=== PATIENT | female | born 1955 | race African-American/Black ===

== ENCOUNTER 2017-07-18 09:18 | Emergency (ER) | payer SELFPAY ==
[2017-07-18 09:45] LABS: ABSOLUTE BASOPHILS # (AUTO) 0.1 10^3/uL (0.0-0.2); ABSOLUTE EOSINOPHILS # (AUTO) 0.1 10^3/uL (0.0-0.6); ABSOLUTE LYMPHOCYTES (AUTO) 1.7 10^3/uL (0.5-4.7); ABSOLUTE MONOCYTES (AUTO) 0.6 10^3/uL (0.1-1.4); ABSOLUTE NEUT (AUTO) 4.8 10^3/uL (1.7-8.2); BASOPHILS % (AUTO) 0.9 % (0-2); EOSINOPHILS % (AUTO) 1.2 % (0-6); HEMATOCRIT 41.7 % (36.0-47.0); HEMOGLOBIN 14.5 g/dL (12.0-15.5); HGB HCT DIFFERENCE 1.8; LYMPHOCYTES % (AUTO) 23.6 % (13-45); MEAN CORPUSCULAR HGB CONC 34.7 g/dL (32.0-36.0); MEAN CORPUSCULAR VOLUME 89 fl (80-97); MONOCYTES % (AUTO) 8.7 % (3-13); RED BLOOD COUNT 4.67 10^6/uL (3.72-5.28); RED CELL DISTRIBUTION WIDTH 13.9 % (11.5-14.0); SEGMENTED NEUTROPHILS % (AUTO) 65.6 % (42-78); WHITE BLOOD COUNT 7.4 10^3/uL (4.0-10.5)
[2017-07-18 10:22] LABS: ALANINE AMINOTRANSFERASE 22 U/L (9-52); ALBUMIN 3.7 g/dL (3.5-5.0); ALKALINE PHOSPHATASE 75 U/L (38-126); ANION GAP 7 (5-19); ASPARTATE AMINO TRANSFERASE 17 U/L (14-36); BILIRUBIN,DIRECT 0.4 mg/dL (0.0-0.4); BLOOD UREA NITROGEN 15 mg/dL (7-20); CALCIUM 9.6 mg/dL (8.4-10.2); CARBON DIOXIDE 27 mmol/L (22-30); CHLORIDE 109 mmol/L (98-107); CREATINE KINASE 104 U/L (30-135); CREATININE RESULT 0.65 mg/dL (0.52-1.25); GLUCOSE 69 mg/dL (75-110); POTASSIUM 4.3 mmol/L (3.6-5.0); SODIUM 143.3 mmol/L (137-145)
[2017-07-18] MEDS ORDERED: ONDANSETRON HCL INJ/PF 4 MG/2 ML SDV IV ONE (10:23)
[2017-07-18] MEDS ORDERED: MECLIZINE HCL 25 MG TABLET PO ONE (10:23)
[2017-07-18] MEDS ORDERED: NORMAL SALINE 1000 ML 1,000 ML IV ONE (10:23)
--- NOTE | 2017-07-18 10:25 | ER Document Report ---
ED General <MIKRUBEN - Last Filed: 07/18/17 15:33> - General Information source: Patient TRAVEL OUTSIDE OF THE U.[place] IN LAST 30 DAYS: No - HPI Onset: Just prior to arrival Associated symptoms: Other - see above <FOZIA PATEL - Last Filed: 07/19/17 10:07> - General Chief Complaint: Dizziness Stated Complaint: WEAKNESS/DIZZY Time Seen by Provider: 07/18/17 09:44 Notes: Patient is a 62 year old female who presents to the ED with complaints of feeling weak and tired. Patient was walking form home to [facility] (about a 45 min walk, she does this 4 times a week) when she became diaphoretic and dizzy. Patient states her symptoms have no exacerbating factors. Patient denies chest pain or sob. Patient is feeling a little better but is still nauseous and she has vomited. (FOZIA PATEL) Past Medical History - General Information source: Patient - Social History Smoking Status: Never Smoker Chew tobacco use (# tins/day): No Frequency of alcohol use: None Drug Abuse: None Family History: Reviewed & Not Pertinent Patient has suicidal ideation: No Patient has homicidal ideation: No - Past Medical History Cardiac Medical History: Reports: Hx Heart Attack Pulmonary Medical History: Reports: Hx Asthma Endocrine Medical History: Reports: Hx Diabetes Mellitus Type 2 Renal/ Medical History: Denies: Hx Peritoneal Dialysis - Immunizations Hx Diphtheria, Pertussis, Tetanus Vaccination: Yes <FOZIA PATEL - Last Filed: 07/19/17 10:07> Review of Systems - Review of Systems Constitutional: See HPI, Malaise, Weakness EENT: No symptoms reported Cardiovascular: See HPI, Dizziness. denies: Chest pain Respiratory: See HPI. denies: Short of breath Gastrointestinal: See HPI, Nausea, Vomiting Genitourinary: No symptoms reported Female Genitourinary: No symptoms reported Musculoskeletal: No symptoms reported Skin: No symptoms reported Hematologic/Lymphatic: No symptoms reported Neurological/Psychological: See HPI, Weakness <FOZIA PATEL - Last Filed: 07/19/17 10:07> Physical Exam <RUBEN HOUSER - Last Filed: 07/18/17 15:33> - General General appearance: Appears well, Alert In distress: None - HEENT Head: Normocephalic, Atraumatic, Other - dizziness reproduced when moving head around Eyes: Normal, Other - no nystagmus Extraocular movements intact: Yes Pupils: PERRL - Respiratory Respiratory status: No respiratory distress Breath sounds: Normal - Cardiovascular Rhythm: Regular Heart sounds: Normal auscultation Murmur: No - Abdominal Inspection: Normal Distension: No distension Bowel sounds: Normal Tenderness: Nontender - Back Back: Normal - Extremities General upper extremity: Normal inspection, Normal ROM General lower extremity: Normal inspection, Normal ROM. No: Edema - Neurological Neuro grossly intact: Yes - Psychological Associated symptoms: Normal affect, Normal mood - Skin Skin Temperature: Warm Skin Moisture: Dry Skin Color: Normal <FOZIA PATEL - Last Filed: 07/19/17 10:07> - Vital signs Vitals: Temp Resp BP Pulse Ox 98.3 F 16 153/86 H 95 07/18/17 09:24 07/18/17 09:24 07/18/17 09:24 07/18/17 09:24 - Skin Notes: Patient has neurofibroma. (FOZIA PATEL) Course - Laboratory Result Diagrams: 07/18/17 09:30 07/18/17 09:30 - EKG Interpretation by Nj EKG shows normal: Sinus rhythm, Dale, Intervals, QRS Complexes, ST-T Waves Rate: Normal - 78 Rhythm: NSR Dale/QRS: LAHB/LAFB Voltage: Consistant with LVH When compared to previous EKG there are: Previous EKG unavailable <RUBEN HOUSER - Last Filed: 07/18/17 15:33> - Laboratory Result Diagrams: 07/18/17 09:30 07/18/17 09:30 <FOZIA PATEL - Last Filed: 07/19/17 10:07> - Vital Signs Vital signs: Temp Pulse Resp BP Pulse Ox 97.2 F 74 16 174/73 H 98 07/18/17 17:01 07/18/17 17:01 07/18/17 17:01 07/18/17 17:01 07/18/17 17:01 - Laboratory Laboratory results interpreted by mo: 07/18/17 07/18/17 09:30 10:30 Chloride 109 H Glucose 69 L Urine Urobilinogen 4.0 H Urine Ascorbic Acid 40 H Discharge <RUBEN HOUSER - Last Filed: 07/18/17 15:33> <FOZIA PATEL - Last Filed: 07/19/17 10:07> - Discharge Clinical Impression: Light-headed feeling, Hypoglycemia Nausea and vomiting Qualifiers: Vomiting type: unspecified Vomiting Intractability: non-intractable Qualified Code(s): R11.2 - Nausea with vomiting, unspecified Condition: Stable Disposition: HOME, SELF-CARE Additional Instructions: Nausea or Vomiting, Nonspecific: Vomiting (or nausea without vomiting) can be caused by many different problems. Of course, it can mean that something's wrong with the stomach, such as "stomach flu," ulcers, or inflammation. But it can also be a symptom of a problem that has nothing to do with the stomach or intestines. Vomiting is common with severe headaches, earaches, and tonsillitis. We see it with pneumonia or heart attacks. Drugs can cause nausea. Many abdominal problems cause vomiting; for example, gallstones, kidney stones, pancreatitis, and intestinal obstruction (blocked bowels). In most cases, curing the vomiting depends on fixing the problem that caused it. For temporary relief, we may use an anti-nausea medicine. For home use, we can prescribe suppositories, chewable pills, pills that dissolve in the mouth, or liquid anti-nausea drugs. If the vomiting seems to be caused by a problem in the stomach, acid-suppressing drugs may be prescribed as well. It's important to avoid dehydration. Sip clear liquids. Take increasing amounts of fluid over the first 24 hours. Then start small amounts of bland foods (such as dry toast, applesauce, mashed potato). Avoid aspirin, tobacco, and alcohol. Gradually resume your usual diet. If the vomiting worsens, if the problem that's making you vomit worsens, or if there's evidence of bleeding in the stomach (such as black, tarry stool, bloody or black vomit, or lightheadedness), you should return immediately. Call your doctor if you aren't improved in 24 to 36 hours. //////////////////////////////////////////////////////////////////////////////// //////////////////////////////////////////////////////////////////////////////// ////////////////// Your symptoms of feeling lightheaded dizzy, nausea weak sweating and vomiting could be due to many causes. Your EKG heart tracing was normal. Your heart enzymes were normal. Your blood sugar was a little low. You did improve with medicine for nausea and dizziness and eating some. You will be discharged with a prescription for medicine that should help the nausea and dizzy sensation. You should be sure to drink plenty of fluids and not miss meals. Get plenty of rest. Follow-up with [facility] for your medical care. Call them tomorrow to set up a new patient appointment. The address for [facility] is [address] [place] [address]. The phone number is listed correctly below. RETURN TO THE EMERGENCY ROOM IF ANY NEW OR WORSENING SYMPTOMS. Prescriptions: Meclizine HCl [Antivert 25 mg Tablet] 25 mg PO TID PRN #20 tablet PRN Reason: Forms: Return to Work Referrals: [facility] [Provider Group] - Follow up in 3-5 days (CALL TOMORROW TO SCHEDULE A NEW PATIENT APPOINTMENT.) Scribe Attestation: 07/18/17 15:38 I personally performed the services described in the documentation, reviewed and edited the documentation which was dictated to the scribe in my presence, and it accurately records my words and actions. (RUBEN HOUSER) Scribe Documentation - Scribe Written by Danielle:: danielle Connolly, 07/18/2017, 1026 acting as scribe for :: Mik <FOZIA PATEL - Last Filed: 07/19/17 10:07>
[2017-07-18 10:35] LABS: CREATINE KINASE MB 0.83 ng/mL (<4.55)
[2017-07-18 10:36] LABS: TROPONIN I < 0.012 ng/mL
[2017-07-18 10:59] LABS: APPEARANCE,URINE CLEAR; BILIRUBIN,URINE NEGATIVE (NEGATIVE); GLUCOSE, URINE NEGATIVE (NEGATIVE); KETONES,URINE NEGATIVE (NEGATIVE); LEUKOCYTE ESTERASE,URINE NEGATIVE (NEGATIVE); NITRITE,URINE NEGATIVE (NEGATIVE); PROTEIN,URINE NEGATIVE (NEGATIVE); URINE SPECIFIC GRAVITY 1.017
[2017-07-18] MEDS ORDERED: METOCLOPRAMIDE HCL INJ/PF 10 MG/2 ML SDV IV ONE (12:34)
--- NOTE | 2017-07-18 13:54 | EKG REPORT ---
SEVERITY:- ABNORMAL ECG - SINUS RHYTHM LEFT ANTERIOR FASCICULAR BLOCK LVH BY VOLTAGE : Confirmed by: Miah Presley MD 18-Jul-2017 13:53:47
[2017-07-18 17:02] VITALS: BP 174/73
== END 2017-07-18 17:04 | disposition home or self-care (01) ==
LOC: ER 09:18
DX: E11.649 Type 2 diabetes mellitus with hypoglycemia without coma (principal); I44.4 Left anterior fascicular block; R53.1 Weakness; R53.83 Other fatigue; R53.81 Other malaise; R11.2 Nausea with vomiting, unspecified; I25.2 Old myocardial infarction; J45.909 Unspecified asthma, uncomplicated; D36.10 Benign neoplasm of peripheral nerves and autonomic nervous system, unspecified
CPT/HCPCS: 93005; 99284; 96374; 96375; 36415; 82553; 82962; 82550; 85025; 80053; 81001; 84484; 93010; J2765; J2405; J7030

== ENCOUNTER 2017-08-26 15:17 | Emergency (ER) | payer MEDICAID ==
[2017-08-26] MEDS ORDERED: ONDANSETRON HCL INJ/PF 4 MG/2 ML SDV IV ONE (15:49)
[2017-08-26] MEDS ORDERED: MORPHINE SULFATE 10 MG/ML INJ IV ONE (15:49)
--- NOTE | 2017-08-26 15:50 | ER Document Report ---
ED Medical Screen (RME) - General Chief Complaint: Abdominal Pain Stated Complaint: ABDOMINAL PAIN Time Seen by Provider: 08/26/17 15:41 Mode of Arrival: Ambulatory Information source: Patient Notes: 62-year-old female presents with complaints of abdominal pain. Patient denies any fevers or chills denies any nausea vomiting or diarrhea patient notes the pain is in the left flank radiating to the her abdomen down to her buttocks I have greeted and performed a rapid initial assessment of this patient. A comprehensive ED assessment and evaluation of the patient, analysis of test results and completion of the medical decision making process will be conducted by additional ED providers. PHYSICAL EXAMINATION: GENERAL: Well-appearing, well-nourished and in no acute distress. HEAD: Atraumatic, normocephalic. EYES: Pupils equal round extraocular movements intact, conjunctiva are normal. ENT: Nares patent NECK: Normal range of motion LUNGS: No respiratory distress Musculoskeletal: Normal range of motion NEUROLOGICAL: Normal speech, normal gait. PSYCH: Normal mood, normal affect. SKIN: Warm, Dry, normal turgor, no rashes or lesions noted. TRAVEL OUTSIDE OF THE [place] IN LAST 30 DAYS: No - Related Data Allergies/Adverse Reactions: Tetracyclines Allergy (Verified 08/26/17 15:29) Past Medical History - Social History Chew tobacco use (# tins/day): No Frequency of alcohol use: None Drug Abuse: None - Past Medical History Cardiac Medical History: Reports: Hx Heart Attack Pulmonary Medical History: Reports: Hx Asthma Endocrine Medical History: Reports: Hx Diabetes Mellitus Type 2 Renal/ Medical History: Denies: Hx Peritoneal Dialysis Past Surgical History: Reports: Hx Hysterectomy, Hx Kidney (Renal Surgery) - cyst removal - Immunizations Hx Diphtheria, Pertussis, Tetanus Vaccination: Yes Physical Exam - Vital signs Vitals: Temp Pulse Resp BP Pulse Ox 98.9 F 69 20 137/72 H 98 08/26/17 15:22 08/26/17 15:22 08/26/17 15:22 08/26/17 15:22 08/26/17 15:22 Course - Vital Signs Vital signs: Temp Pulse Resp BP Pulse Ox 98.9 F 69 20 137/72 H 98 08/26/17 15:22 08/26/17 15:22 08/26/17 15:22 08/26/17 15:22 08/26/17 15:22
[2017-08-26 16:38] LABS: APPEARANCE,URINE CLEAR; BILIRUBIN,URINE NEGATIVE (NEGATIVE); GLUCOSE, URINE 50 mg/dL (NEGATIVE); KETONES,URINE NEGATIVE (NEGATIVE); LEUKOCYTE ESTERASE,URINE TRACE (NEGATIVE); NITRITE,URINE NEGATIVE (NEGATIVE); PROTEIN,URINE NEGATIVE (NEGATIVE); URINE SPECIFIC GRAVITY 1.019; UROBILINOGEN,URINE NEGATIVE mg/dL (<2.0)
--- NOTE | 2017-08-26 17:12 | ER Document Report ---
ED GI/ - General Chief Complaint: Abdominal Pain Stated Complaint: ABDOMINAL PAIN Time Seen by Provider: 08/26/17 15:41 Mode of Arrival: Ambulatory Information source: Patient Notes: 62 yo htn, neurofibromatosis, benign fallopian mass removed, DM2 (insulin dependent female c/o left waxing and waning 5/5 flank pain that radiates to LLQ for 1 week. Nausea without vomiting. Worse with movement. Similar pain in the past but on right and it was diverticulitis resulted in parital colectomy ( [place]), hyst. No hx kidney stones, urine looks dark. No cough or SOB, no chest pain. PCP: Dr. [facility]. Has had 3-[address]'s in life. Soft bm this am, no blood or mucous. TRAVEL OUTSIDE OF THE [place] IN LAST 30 DAYS: No - Related Data Allergies/Adverse Reactions: Tetracyclines Allergy (Verified 08/26/17 15:29) Past Medical History - General Information source: Patient - Social History Smoking Status: Never Smoker Chew tobacco use (# tins/day): No Frequency of alcohol use: None Drug Abuse: None Lives with: Family Family History: Reviewed & Not Pertinent - Past Medical History Cardiac Medical History: Reports: Hx Heart Attack - "light" this year Pulmonary Medical History: Reports: Hx Asthma Endocrine Medical History: Reports: Hx Diabetes Mellitus Type 2 Renal/ Medical History: Denies: Hx Peritoneal Dialysis Other: neurofibromatosis Past Surgical History: Reports: Hx Bowel Surgery - partial colectomy, Hx Hysterectomy, Hx Kidney (Renal Surgery) - cyst removal - Immunizations Hx Diphtheria, Pertussis, Tetanus Vaccination: Yes Review of Systems - Review of Systems Constitutional: No symptoms reported EENT: No symptoms reported Cardiovascular: No symptoms reported Respiratory: No symptoms reported Gastrointestinal: See HPI Genitourinary: No symptoms reported Female Genitourinary: No symptoms reported Musculoskeletal: No symptoms reported Skin: No symptoms reported Hematologic/Lymphatic: No symptoms reported Neurological/Psychological: No symptoms reported Physical Exam - Vital signs Vitals: Temp Pulse Resp BP Pulse Ox 98.9 F 69 20 137/72 H 98 08/26/17 15:22 08/26/17 15:22 08/26/17 15:22 08/26/17 15:22 08/26/17 15:22 Interpretation: Normal - General General appearance: Appears well, Alert In distress: None - HEENT Head: Normocephalic, Atraumatic Eyes: Normal Conjunctiva: Normal Pupils: PERRL Mucous membranes: Normal Pharynx: Normal Neck: Supple. No: Thyromegally - Respiratory Respiratory status: No respiratory distress Chest status: Nontender Breath sounds: Normal Chest palpation: Normal - Cardiovascular Rhythm: Regular Heart sounds: Normal auscultation Murmur: No - Abdominal Inspection: Normal Distension: No distension Bowel sounds: Normal Tenderness: Tender - LLQ Organomegaly: No organomegaly - Back Back: Normal, Tender - Left lumbosacral back. No: CVA tenderness - Extremities General upper extremity: Normal inspection, Nontender, Normal color, Normal ROM , Normal temperature General lower extremity: Normal inspection, Nontender, Normal color, Normal ROM , Normal temperature, Normal weight bearing. No: Mk's sign - Neurological Neuro grossly intact: Yes Cognition: Normal Orientation: AAOx4 [place] Coma Scale Eye Opening: Spontaneous [place] Coma Scale Verbal: Oriented J[place] Coma Scale Motor: Obeys Commands Jyoti Coma Scale Total: 15 Speech: Normal Motor strength normal: LUE, RUE, LLE, RLE Sensory: Normal Knee - Reflex grade: 2 = Normal - Bilateral Ankle - Reflex grade: 2 = Normal - Lateral - Psychological Associated symptoms: Normal affect, Normal mood - Skin Skin Temperature: Warm Skin Moisture: Dry Skin Color: Normal Skin irregularity: negative: Rash Course - Re-evaluation Re-evalutation: 08/26/17 19:10 labs, ct, are negative except stool load in colon. Told her about miralax, she is most interested in getting a school note. I suspect the back pain is muscular , reflexs 2+, no radiculoapthy or saddle anesthesia. - Vital Signs Vital signs: Temp Pulse Resp BP Pulse Ox 98.9 F 69 20 137/72 H 98 08/26/17 15:22 08/26/17 15:22 08/26/17 15:22 08/26/17 15:22 08/26/17 15:22 - Laboratory Result Diagrams: 08/26/17 16:42 08/26/17 16:42 Laboratory results interpreted by me: 08/26/17 08/26/17 08/26/17 15:50 16:42 16:42 WBC 10.6 H RBC 5.58 H Hgb 17.6 H Hct 49.6 H Glucose 172 H Calcium 10.6 H Total Protein 8.5 H Urine Glucose (UA) 50 H Ur Leukocyte Esterase TRACE H Urine Ascorbic Acid 20 H Discharge - Discharge Clinical Impression: left flank pain, lumbosacral tender, LLQ abdominal pain Condition: Good Disposition: HOME, SELF-CARE Instructions: Abdominal Pain ([facility]), Flank Pain ([facility]), Warm Packs ([facility]) Additional Instructions: take miralax 1 capful daily heat to sore back to er if worse see your doctor for follow up copy of labs and imaging given to you Please complete the patient satisfaction survey if you get one, and return it.. If you do not receive a survey, then you can go to the [facility] website, [email or web address] and place your comments about your very good care. Thank you very much. It was a pleasure being your medical provider today. Forms: Return to School
[2017-08-26 17:13] LABS: ABSOLUTE BASOPHILS # (AUTO) 0.1 10^3/uL (0.0-0.2); ABSOLUTE EOSINOPHILS # (AUTO) 0.2 10^3/uL (0.0-0.6); ABSOLUTE LYMPHOCYTES (AUTO) 2.9 10^3/uL (0.5-4.7); ABSOLUTE MONOCYTES (AUTO) 0.8 10^3/uL (0.1-1.4); ABSOLUTE NEUT (AUTO) 6.5 10^3/uL (1.7-8.2); BASOPHILS % (AUTO) 0.8 % (0-2); EOSINOPHILS % (AUTO) 1.5 % (0-6); HEMATOCRIT 49.6 % (36.0-47.0); HEMOGLOBIN 17.6 g/dL (12.0-15.5); HGB HCT DIFFERENCE 3.2; LYMPHOCYTES % (AUTO) 27.7 % (13-45); MEAN CORPUSCULAR HEMOGLOBIN 31.5 pg (27.0-33.4); MEAN CORPUSCULAR HGB CONC 35.4 g/dL (32.0-36.0); MEAN CORPUSCULAR VOLUME 89 fl (80-97); RED BLOOD COUNT 5.58 10^6/uL (3.72-5.28); RED CELL DISTRIBUTION WIDTH 13.5 % (11.5-14.0); WHITE BLOOD COUNT 10.6 10^3/uL (4.0-10.5)
[2017-08-26 17:33] LABS: ALANINE AMINOTRANSFERASE 30 U/L (9-52); ALBUMIN 4.5 g/dL (3.5-5.0); ALKALINE PHOSPHATASE 95 U/L (38-126); ANION GAP 14 (5-19); ASPARTATE AMINO TRANSFERASE 17 U/L (14-36); BILIRUBIN,DIRECT 0.4 mg/dL (0.0-0.4); BILIRUBIN,TOTAL 1.2 mg/dL (0.2-1.3); BLOOD UREA NITROGEN 14 mg/dL (7-20); CALCIUM 10.6 mg/dL (8.4-10.2); CARBON DIOXIDE 25 mmol/L (22-30); CHLORIDE 103 mmol/L (98-107); CREATININE RESULT 0.65 mg/dL (0.52-1.25); GLUCOSE 172 mg/dL (75-110); LIPASE 47.3 U/L (23-300); POTASSIUM 3.9 mmol/L (3.6-5.0); SODIUM 141.7 mmol/L (137-145); TOTAL PROTEIN 8.5 g/dL (6.3-8.2)
--- NOTE | 2017-08-26 18:56 | RADIOLOGY REPORT (SQ) ---
EXAM DESCRIPTION: CT ABD/PELVIS WITH IV ONLY COMPLETED DATE/TIME: 08/26/2017 6:21 pm REASON FOR STUDY: LLQ and flank pain COMPARISON: None. TECHNIQUE: CT scan of the abdomen and pelvis performed using helical scanning technique with dynamic intravenous contrast injection. No oral contrast. Images reviewed with lung, soft tissue, and bone windows. Reconstructed coronal and sagittal MPR images reviewed. Delayed images for evaluation of the urinary system also acquired. All images stored on PACS. All CT scanners at this facility use dose modulation, iterative reconstruction, and/or weight based d osing when appropriate to reduce radiation dose to as low as reasonably achievable (ALARA). [facility]: Dose Right [facility]: CareDose [facility]: Dose Right [facility]: Teradose 4D [facility]: Enpocket CONTRAST TYPE AND DOSE: contrast/concentration: Isovue 370.00 mg/ml; Total Contrast Delivered: 81.0 ml; Total Saline Delivered: 51.0 ml 80 mL Isovue intravenously RENAL FUNCTION: Creatinine 0.65. RADIATION DOSE: Up-to-date CT equipment and radiation dose reduction techniques were employed. CTDIv ol: 6.6 - 7.6 mGy. DLP: 758 mGy-cm.. LIMITATIONS: None. FINDINGS: LOWER CHEST: No significant findings. No nodules or infiltrates. LIVER: Normal size. No masses. No dilated ducts. SPLEEN: Normal size. No focal lesions. PANCREAS: No masses. No significant calcifications. No adjacent inflammation or peripancreatic fluid collections. Pancreatic duct not dilated. GALLBLADDER: No identified stones by CT criteria. No inflammatory changes to suggest cholecystitis. ADRENAL GLANDS: No significant masses or asymmetry. RIGHT KIDNEY AND URETER: No solid masses. No significant calcifications. No hydronephrosis or hyd roureter. LEFT KIDNEY AND URETER: No solid masses. No significant calcifications. No hydronephrosis or hydr oureter. AORTA AND VESSELS: No AAA. RETROPERITONEUM: No retroperitoneal adenopathy, hemorrhage or masses. BOWEL AND PERITONEAL CAVITY: Nonobstructive appearance, post partial right colectomy. Increased feca l material is noted, somewhat distending the rectosigmoid. APPENDIX: Surgically absent PELVIS: No mass. No free fluid. Normal bladder. ABDOMINAL WALL: Small umbilical hernia contains peritoneal fat. BONES: No significant or acute findings. OTHER: No other significant finding. IMPRESSION: Nonobstructive bowel pattern, post partial right colectomy. Increased fecal material is noted colon, somewhat distending the rectosigmoid. TECHNICAL DOCUMENTATION: JOB ID: [id number] Quality ID # [id number]: Final reports with documentation of one or more dose reduction techniques (e.g., Au tomated exposure control, adjustment of the mA and/or kV according to patient size, use of iterative reconstruction technique) 2010 [employer]- All Rights Reserved
[2017-08-26 19:33] VITALS: BP 121/77
== END 2017-08-26 19:32 | disposition home or self-care (01) ==
LOC: ER 15:17
DX: R10.32 Left lower quadrant pain (principal); R10.9 Unspecified abdominal pain; M54.5 Low back pain; E11.9 Type 2 diabetes mellitus without complications; Z79.4 Long term (current) use of insulin
CPT/HCPCS: 99284; 96374; 96375; 36415; 87086; 83690; 85025; 80053; 81001; 74177; J2270; J2405

== ENCOUNTER 2017-09-23 08:22 | Day surgery (SDC) | payer MEDICAID ==
[~2017-09-23 08:22] MED LIST: PROPOFOL INJ 200 MG/20 ML VIAL IV ONE
[2017-09-23 10:51] VITALS: BP 109/81
--- NOTE | 2017-09-23 12:29 | Operative Report ---
Operative Report DATE OF SURGERY: 09/23/17 Operative Report: The risks, benefits and alternatives of the procedure including risks of bleeding, perforation requiring surgery are explained to the patient in detail and informed consent is obtained. The patient is taken back to the endoscopy suite and placed in the left, lateral decubital position. A rectal examination is done which did not reveal any masses, tears or fissures. An Olympus videoscope was inserted into the patient's rectum. The cecum. The cecum was identified by the usual anatomical landmarks including the ileocecal valve as well as the appendiceal office. Photodocumentation was obtained. The scope was then sequentially pulled back via the various segments of the colon including the ascending colon, hepatic flexure, transverse colon, splenic flexure, descending colon and finding to the rectosigmoid portions of the colon. Retroflexion maneuvers performed. PREOPERATIVE DIAGNOSIS: Left lower quadrant pain, change of bowel habits POSTOPERATIVE DIAGNOSIS: Right side colon Mucosal inflammation status post biopsy. Diverticulosis. Internal hemorrhoids OPERATION: Colonoscopy with biopsy SURGEON: MARTÍN REGAN ANESTHESIA: LMAC TISSUE REMOVED OR ALTERED: As noted above. COMPLICATIONS: None. ESTIMATED BLOOD LOSS: None. INTRAOPERATIVE FINDINGS: As noted above. PROCEDURE: Patient tolerated the procedure well. No immediate postprocedure complications are noted. Patient discharged in good condition. Discharge date 09/23/2017. Discharge diet: Regular. Discharge activity: Regular. 2-3 week follow-up to discuss findings. Patient is instructed to call the office or proceed to the emergency room should there be any further problems or questions. We will wait on pathology. If biopsies are negative she can have a 10 year surveillance.
== END 2017-09-23 10:40 | disposition home or self-care (01) ==
LOC: END 08:22
PROVIDERS: ATTEND Internal Medicine Gastroenterology
PROC: 0DBF8ZX Excision of Right Large Intestine, Via Natural or Artificial Opening Endoscopic, Diagnostic (ICD-10-PCS; principal; 2017-09-23 10:30)
DX: K57.30 Diverticulosis of large intestine without perforation or abscess without bleeding (principal); K64.8 Other hemorrhoids; K52.9 Noninfective gastroenteritis and colitis, unspecified; I10 Essential (primary) hypertension; E11.9 Type 2 diabetes mellitus without complications; K21.9 Gastro-esophageal reflux disease without esophagitis; M19.90 Unspecified osteoarthritis, unspecified site; E66.9 Obesity, unspecified; Z79.82 Long term (current) use of aspirin; Z79.4 Long term (current) use of insulin; Z79.899 Other long term (current) drug therapy; Z88.1 Allergy status to other antibiotic agents; Z68.30 Body mass index [BMI] 30.0-30.9, adult; Q85.00 Neurofibromatosis, unspecified
CPT/HCPCS: 45380; 82962; 88305 ×2; J2704; 810

== ENCOUNTER 2017-10-26 16:58 | Emergency (ER) | payer MEDICAID ==
[2017-10-26 17:30] VITALS: BP 158/78
[2017-10-26] MEDS ORDERED: NORMAL SALINE 1000 ML 1,000 ML IV ONE ×2 (18:08→20:09)
[2017-10-26] MEDS ORDERED: ONDANSETRON HCL INJ/PF 4 MG/2 ML SDV IV ONE (18:09)
--- NOTE | 2017-10-26 18:09 | ER Document Report ---
ED Medical Screen (RME) - General Chief Complaint: High Blood Sugar Stated Complaint: HIGH GLUCOSE Time Seen by Provider: 10/26/17 18:06 TRAVEL OUTSIDE OF THE [place] IN LAST 30 DAYS: No - HPI Notes: 10/26/17 18:09 Elevated blood sugars with nausea. States blood sugars greater than 500 at home - Related Data Allergies/Adverse Reactions: Tetracyclines Allergy (Verified 10/26/17 17:30) Past Medical History - Past Medical History Cardiac Medical History: Reports: Hx Hypertension Denies: Hx Coronary Artery Disease, Hx Heart Attack - "light" this year Pulmonary Medical History: Reports: Hx Asthma - WITH ILLNESS, Hx Pneumonia - 1989 Denies: Hx Bronchitis, Hx COPD Neurological Medical History: Denies: Hx Cerebrovascular Accident, Hx Seizures Endocrine Medical History: Reports: Hx Diabetes Mellitus Type 2 Renal/ Medical History: Denies: Hx Peritoneal Dialysis Musculoskeltal Medical History: Reports Hx Arthritis - GENERALIZED Past Surgical History: Reports: Hx Bowel Surgery - partial colectomy, Hx Hysterectomy, Hx Kidney (Renal Surgery) - cyst removal - Immunizations Hx Diphtheria, Pertussis, Tetanus Vaccination: Yes Influenza Administration Date for 09/2017 - 01/2018 Season: 09/13/17 Review of Systems - Review of Systems Constitutional: Other - Elevated blood sugar with nausea Physical Exam - Vital signs Vitals: Temp Pulse Resp BP Pulse Ox 98.6 F 89 20 158/78 H 98 10/26/17 17:26 10/26/17 17:26 10/26/17 17:26 10/26/17 17:26 10/26/17 17:26 - Respiratory Respiratory status: No respiratory distress Chest status: Nontender Breath sounds: Normal Chest palpation: Normal Course - Vital Signs Vital signs: Temp Pulse Resp BP Pulse Ox 98.6 F 89 20 158/78 H 98 10/26/17 17:26 10/26/17 17:26 10/26/17 17:26 10/26/17 17:26 10/26/17 17:26
[2017-10-26 18:56] LABS: ABSOLUTE BASOPHILS # (AUTO) 0.1 10^3/uL (0.0-0.2); ABSOLUTE EOSINOPHILS # (AUTO) 0.1 10^3/uL (0.0-0.6); ABSOLUTE LYMPHOCYTES (AUTO) 2.3 10^3/uL (0.5-4.7); ABSOLUTE MONOCYTES (AUTO) 0.7 10^3/uL (0.1-1.4); ABSOLUTE NEUT (AUTO) 5.8 10^3/uL (1.7-8.2); BASOPHILS % (AUTO) 0.9 % (0-2); EOSINOPHILS % (AUTO) 1.5 % (0-6); HEMATOCRIT 48.4 % (36.0-47.0); HEMOGLOBIN 16.8 g/dL (12.0-15.5); LYMPHOCYTES % (AUTO) 25.7 % (13-45); MEAN CORPUSCULAR HEMOGLOBIN 31.4 pg (27.0-33.4); MEAN CORPUSCULAR HGB CONC 34.8 g/dL (32.0-36.0); MEAN CORPUSCULAR VOLUME 90 fl (80-97); MONOCYTES % (AUTO) 7.3 % (3-13); RED BLOOD COUNT 5.37 10^6/uL (3.72-5.28); RED CELL DISTRIBUTION WIDTH 14.1 % (11.5-14.0); SEGMENTED NEUTROPHILS % (AUTO) 64.6 % (42-78); WHITE BLOOD COUNT 9.1 10^3/uL (4.0-10.5)
[2017-10-26 19:17] LABS: ALANINE AMINOTRANSFERASE 20 U/L (9-52); ALBUMIN 4.6 g/dL (3.5-5.0); ALKALINE PHOSPHATASE 112 U/L (38-126); ANION GAP 17 (5-19); ASPARTATE AMINO TRANSFERASE 19 U/L (14-36); BILIRUBIN,DIRECT 0.6 mg/dL (0.0-0.4); BILIRUBIN,TOTAL 0.8 mg/dL (0.2-1.3); BLOOD UREA NITROGEN 20 mg/dL (7-20); CALCIUM 10.4 mg/dL (8.4-10.2); CARBON DIOXIDE 26 mmol/L (22-30); CHLORIDE 96 mmol/L (98-107); CREATININE RESULT 0.86 mg/dL (0.52-1.25); LIPASE 51.2 U/L (23-300); POTASSIUM 4.2 mmol/L (3.6-5.0); SODIUM 139.2 mmol/L (137-145); TOTAL PROTEIN 8.7 g/dL (6.3-8.2)
[2017-10-26 19:27] LABS: GLUCOSE 542 mg/dL (75-110)
[2017-10-26 19:33] LABS: VENOUS BLOOD HCO3 25.2 mmol/L (20-32); VENOUS BLOOD PCO2 43.2 mmHg (35-63); VENOUS BLOOD PH 7.38 (7.30-7.42)
[2017-10-26] MEDS ORDERED: INSULIN REG, HUMAN 100 UNIT/ML 3 ML VIAL (PYX) SUBCUT ONE (20:08)
--- NOTE | 2017-10-26 20:13 | ER Document Report ---
ED Blood Sugar Problem - General Chief Complaint: High Blood Sugar Stated Complaint: HIGH GLUCOSE Time Seen by Provider: 10/26/17 18:06 Notes: 62-year-old female patient history of diabetes. Takes 5 units of insulin meals and Lantus at night. States that she has not felt well today. Increased frequency of urination. Denies any chest pain, shortness of breath, abdominal pain, foot pain open sores or lesions or any other concerns at this time. TRAVEL OUTSIDE OF THE [place] IN LAST 30 DAYS: No - Related Data Allergies/Adverse Reactions: Tetracyclines Allergy (Verified 10/26/17 17:30) Past Medical History - Social History Smoking Status: Never Smoker Chew tobacco use (# tins/day): No Frequency of alcohol use: None Drug Abuse: None Family History: Reviewed & Not Pertinent Patient has suicidal ideation: No Patient has homicidal ideation: No - Past Medical History Cardiac Medical History: Reports: Hx Hypertension Denies: Hx Coronary Artery Disease, Hx Heart Attack - "light" this year Pulmonary Medical History: Reports: Hx Asthma - WITH ILLNESS, Hx Pneumonia - WALKING 1989 Denies: Hx Bronchitis, Hx COPD Neurological Medical History: Denies: Hx Cerebrovascular Accident, Hx Seizures Endocrine Medical History: Reports: Hx Diabetes Mellitus Type 2 Renal/ Medical History: Denies: Hx Peritoneal Dialysis Musculoskeltal Medical History: Reports Hx Arthritis - GENERALIZED Past Surgical History: Reports: Hx Bowel Surgery - partial colectomy, Hx Hysterectomy, Hx Kidney (Renal Surgery) - cyst removal - Immunizations Hx Diphtheria, Pertussis, Tetanus Vaccination: Yes Review of Systems - Review of Systems Constitutional: Malaise, Weakness. denies: Fever EENT: No symptoms reported Cardiovascular: No symptoms reported Respiratory: No symptoms reported Gastrointestinal: No symptoms reported Genitourinary: No symptoms reported Female Genitourinary: No symptoms reported Musculoskeletal: No symptoms reported Skin: No symptoms reported Hematologic/Lymphatic: No symptoms reported Neurological/Psychological: No symptoms reported Physical Exam - Vital signs Vitals: Temp Pulse Resp BP Pulse Ox 98.6 F 89 20 158/78 H 98 10/26/17 17:26 10/26/17 17:26 10/26/17 17:26 10/26/17 17:26 10/26/17 17:26 Interpretation: Normal - General General appearance: Appears well, Alert - HEENT Head: Normocephalic, Atraumatic Eyes: Normal Pupils: PERRL - Respiratory Respiratory status: No respiratory distress Chest status: Nontender Breath sounds: Normal Chest palpation: Normal - Cardiovascular Rhythm: Regular Heart sounds: Normal auscultation Murmur: No - Abdominal Inspection: Normal Distension: No distension Bowel sounds: Normal Tenderness: Nontender Organomegaly: No organomegaly - Back Back: Normal, Nontender - Extremities General upper extremity: Normal inspection, Nontender, Normal color, Normal ROM , Normal temperature General lower extremity: Normal inspection, Nontender, Normal color, Normal ROM , Normal temperature, Normal weight bearing, Other - Inspection of bilateral plantar surfaces of the feet reveals no active lesions or open sores peer. No: Mk's sign - Neurological Neuro grossly intact: Yes Cognition: Normal Orientation: AAOx4 Jyoti Coma Scale Eye Opening: Spontaneous Jyoti Coma Scale Verbal: Oriented Moody Coma Scale Motor: Obeys Commands Moody Coma Scale Total: 15 Speech: Normal Motor strength normal: LUE, RUE, LLE, RLE Sensory: Normal - Psychological Associated symptoms: Normal affect, Normal mood - Skin Skin Temperature: Warm Skin Moisture: Dry Skin Color: Normal Course - Re-evaluation Re-evalutation: 10/26/17 20:12 Is a relatively well-appearing female in no acute distress with hyperglycemia. Does not appear to be in DKA. We will get basic labs, EKG, cardiac labs urinalysis and reassess. We will give IV fluids and insulin and repeat the Accu -Chek. 10/26/17 21:37 Blood sugar coming down nicely. No signs of infection. No signs of ischemia. Comfortable at this time discharging. Patient advised to follow-up with her regular doctors to get her blood sugar more under control. - Vital Signs Vital signs: Temp Pulse Resp BP Pulse Ox 98.6 F 89 20 158/78 H 98 10/26/17 17:26 10/26/17 17:26 10/26/17 17:26 10/26/17 17:26 10/26/17 17:26 - Laboratory Result Diagrams: 10/26/17 18:30 10/26/17 18:30 Laboratory results interpreted by me: 10/26/17 10/26/17 10/26/17 17:54 18:30 18:30 RBC 5.37 H Hgb 16.8 H Hct 48.4 H RDW 14.1 H Chloride 96 L Glucose 542 H* POC Glucose Hemoglobin A1c % Calcium 10.4 H Direct Bilirubin 0.6 H Total Protein 8.7 H Urine Glucose (UA) >=500 H 10/26/17 10/26/17 18:30 20:41 RBC Hgb Hct RDW Chloride Glucose POC Glucose 348 H Hemoglobin A1c % 8.6 H Calcium Direct Bilirubin Total Protein Urine Glucose (UA) - EKG Interpretation by [place] EKG shows normal: Sinus rhythm, ST-T Waves Voltage: Consistant with [facility]H P Waves: LAE Discharge - Discharge Clinical Impression: Hyperglycemia due to type 2 diabetes mellitus Qualifiers: Diabetes mellitus rat exterminator insulin use: with rat exterminator use Qualified Code(s): E11.65 - Type 2 diabetes mellitus with hyperglycemia; Z79.4 - longterm (current ) use of insulin; Z79.4 - longterm (current) use of insulin; Z79.4 - longterm (current) use of insulin; Z79.4 - superintendent terminal (current) use of insulin Disposition: HOME, SELF-CARE Instructions: Hyperglycemia ([facility]), Diabetes ([facility]) Additional Instructions: It is very important that you check your blood sugar on a regular basis. Please follow-up with your regular doctor to discuss medication changes as it appears that your insulin requirements have increased. Please avoid high carbohydrate foods such as breads, pastas, potatoes, desserts, sweets and sugar. Avoid sugar sweetened beverages. Eat more healthy fats such as all olives, olive oil, avocados, nuts and seeds as well as lean proteins such as lean beef and chicken and fish. Avoid fried foods. If you develop worsening symptoms it is very important that you return for repeat evaluation. Referrals: MAREN RETANA MD [ACTIVE STAFF] - Follow up in 1 week
[2017-10-26 20:57] LABS: APPEARANCE,URINE CLEAR; BILIRUBIN,URINE NEGATIVE (NEGATIVE); GLUCOSE, URINE >=500 mg/dL (NEGATIVE); KETONES,URINE NEGATIVE (NEGATIVE); LEUKOCYTE ESTERASE,URINE NEGATIVE (NEGATIVE); NITRITE,URINE NEGATIVE (NEGATIVE); PROTEIN,URINE NEGATIVE (NEGATIVE); URINE SPECIFIC GRAVITY 1.029; UROBILINOGEN,URINE NEGATIVE mg/dL (<2.0)
--- NOTE | 2017-10-28 06:01 | EKG REPORT ---
SEVERITY:- ABNORMAL ECG - SINUS RHYTHM PROBABLE LEFT ATRIAL ABNORMALITY LEFT ANTERIOR FASCICULAR BLOCK PROBABLE LEFT VENTRICULAR HYPERTROPHY : Confirmed by: Penelope Ordonez MD 28-Oct-2017 06:00:41
== END 2017-10-26 22:13 | disposition home or self-care (01) ==
LOC: ER 16:58
DX: E11.65 Type 2 diabetes mellitus with hyperglycemia (principal); R53.1 Weakness; I10 Essential (primary) hypertension; Z79.4 Long term (current) use of insulin; Z90.710 Acquired absence of both cervix and uterus
CPT/HCPCS: 93005; 99284; 96374; 36415; 82962; 83690; 85025; 80053; 81001; 84484; 83036; 82803; 93010; J1815; J2405; J7030

== ENCOUNTER 2017-12-22 08:23 | Observation (INO) | payer MEDICAID ==
[2017-12-22] MEDS ORDERED: ASPIRIN 81 MG TABLET, CHEWABLE PO ONE (08:33)
--- NOTE | 2017-12-22 09:00 | ER Document Report ---
ED General - General Chief Complaint: Chest Pain Stated Complaint: CHEST PAIN Time Seen by Provider: 12/22/17 09:00 Information source: Patient, Transfer Record TRAVEL OUTSIDE OF THE [place] IN LAST 30 DAYS: No - HPI Patient complains to provider of: Chest pain Onset: Just prior to arrival Context: Patient states around 830 this morning she was walking to the store when she developed left sided dull chest pains without radiation.It was associated with nausea and mild shortness of breath.She states she does not have any cardiac problems she has never had a stress test and she does not have a ranch hand. Associated symptoms: Shortness of breath Exacerbated by: Walking Relieved by: Denies Similar symptoms previously: No Recently seen / treated by doctor: No - Related Data Allergies/Adverse Reactions: Tetracyclines Allergy (Verified 10/26/17 17:30) Past Medical History - General Information source: Patient - Social History Smoking Status: Never Smoker Frequency of alcohol use: None Lives with: Family Family History: Reviewed & Not Pertinent, DM - Past Medical History Cardiac Medical History: Reports: Hx Hypertension Denies: Hx Coronary Artery Disease, Hx Heart Attack - "light" this year Pulmonary Medical History: Reports: Hx Asthma - WITH ILLNESS, Hx Pneumonia - WALKING 1989 Denies: Hx Bronchitis, Hx COPD EENT Medical History: Reports: None Neurological Medical History: Reports: None. Denies: Hx Cerebrovascular Accident, Hx Seizures Endocrine Medical History: Reports: Hx Diabetes Mellitus Type 2 Renal/ Medical History: Reports: None. Denies: Hx Peritoneal Dialysis Malignancy Medical History: Reports: None GI Medical History: Reports: None, Other - Diverticulitis Musculoskeltal Medical History: Reports Hx Arthritis - GENERALIZED Skin Medical History: Reports None Psychiatric Medical History: Reports: None Traumatic Medical History: Reports: None Past Surgical History: Reports: Hx Bowel Surgery - partial colectomy, Hx Hysterectomy, Hx Kidney (Renal Surgery) - cyst removal - Immunizations Hx Diphtheria, Pertussis, Tetanus Vaccination: Yes History of Influenza Vaccine for 09/2017 - 01/2018 Season: Yes - Patient thinks she got the flu vaccine Review of Systems - Review of Systems Constitutional: No symptoms reported EENT: No symptoms reported Cardiovascular: See HPI Respiratory: See HPI Gastrointestinal: No symptoms reported Genitourinary: No symptoms reported Female Genitourinary: No symptoms reported Musculoskeletal: No symptoms reported Skin: No symptoms reported Hematologic/Lymphatic: No symptoms reported Neurological/Psychological: No symptoms reported Physical Exam - Vital signs Vitals: Temp Pulse Resp BP Pulse Ox 98 F 96 16 122/73 96 12/22/17 08:33 12/22/17 08:33 12/22/17 08:33 12/22/17 08:33 12/22/17 08:33 Interpretation: Normal - Notes Notes: PHYSICAL EXAMINATION: GENERAL: Well-appearing, well-nourished and in no acute distress. HEAD: Atraumatic, normocephalic. EYES: Pupils equal round and reactive to light, extraocular movements intact, conjunctiva are normal. ENT: Nares patent, oropharynx clear without exudates. Moist mucous membranes. NECK: Normal range of motion, supple without lymphadenopathy LUNGS: Breath sounds clear to auscultation bilaterally and equal. No wheezes rales or rhonchi. HEART: Regular rate and rhythm without murmurs ABDOMEN: Soft, nontender, nondistended abdomen. No guarding, no rebound. No masses appreciated. Female : deferred Musculoskeletal: Normal range of motion, no pitting or edema. No cyanosis. Right lower extremity calf area slightly larger than left. Patient states this is normal for her. NEUROLOGICAL: Cranial nerves grossly intact. Normal speech. Normal sensory, motor exams PSYCH: Normal mood, normal affect. SKIN: Warm, Dry, normal turgor, no rashes or lesions noted. Course - Re-evaluation Re-evalutation: 12/22/17 11:06 pt. ambulated to bathroom with assist. 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 Wise Unit Admitted: Telemetry
--- NOTE | 2017-12-22 09:13 | RADIOLOGY REPORT (SQ) ---
EXAM DESCRIPTION: CHEST SINGLE VIEW COMPLETED DATE/TIME: 12/22/2017 9:01 am REASON FOR STUDY: cp COMPARISON: None. EXAM PARAMETERS: NUMBER OF VIEWS: One view. TECHNIQUE: Single frontal radiographic view of the chest acquired. RADIATION DOSE: NA LIMITATIONS: None. FINDINGS: LUNGS AND PLEURA: Linear opacities within the right upper lobe and left lower lobe likely represent subsegmental atelectasis or scarring. No consolidation, pleural effusion or pneumothorax. Possible none 10 mm pulmonary nodule right upper lobe. MEDIASTINUM AND HILAR STRUCTURES: No masses. Contour normal. HEART AND VASCULAR STRUCTURES: Heart normal in size. Normal vasculature. BONES: No acute findings. HARDWARE: None in the chest. OTHER: No other significant finding. IMPRESSION: CHRONIC LUNG CHANGE WITH POSSIBLE 10 MM PULMONARY NODULE RIGHT UPPER LOBE. CT IS AVAILA BLE FOR FURTHER CHARACTERIZATION. TECHNICAL DOCUMENTATION: JOB ID: [id number] [employer]- All Rights Reserved
[2017-12-22 09:19] LABS: ABSOLUTE BASOPHILS # (AUTO) 0.1 10^3/uL (0.0-0.2); ABSOLUTE EOSINOPHILS # (AUTO) 0.1 10^3/uL (0.0-0.6); ABSOLUTE MONOCYTES (AUTO) 0.8 10^3/uL (0.1-1.4); ABSOLUTE NEUT (AUTO) 4.6 10^3/uL (1.7-8.2); BASOPHILS % (AUTO) 0.6 % (0-2); EOSINOPHILS % (AUTO) 1.7 % (0-6); HEMATOCRIT 45.8 % (36.0-47.0); HEMOGLOBIN 15.8 g/dL (12.0-15.5); LYMPHOCYTES % (AUTO) 35.2 % (13-45); MEAN CORPUSCULAR HEMOGLOBIN 30.9 pg (27.0-33.4); MEAN CORPUSCULAR HGB CONC 34.4 g/dL (32.0-36.0); MEAN CORPUSCULAR VOLUME 90 fl (80-97); MONOCYTES % (AUTO) 8.8 % (3-13); PLATELET COUNT 223 10^3/uL (150-450); RED BLOOD COUNT 5.11 10^6/uL (3.72-5.28); RED CELL DISTRIBUTION WIDTH 12.9 % (11.5-14.0); SEGMENTED NEUTROPHILS % (AUTO) 53.7 % (42-78); TOTAL CELLS COUNTED % (AUTO) 100 %; WHITE BLOOD COUNT 8.5 10^3/uL (4.0-10.5)
[2017-12-22 09:25] LABS: ALANINE AMINOTRANSFERASE 30 U/L (9-52); ALKALINE PHOSPHATASE 104 U/L (38-126); ANION GAP 10 (5-19); ASPARTATE AMINO TRANSFERASE 18 U/L (14-36); BILIRUBIN,DIRECT 0.3 mg/dL (0.0-0.4); BILIRUBIN,TOTAL 0.7 mg/dL (0.2-1.3); BLOOD UREA NITROGEN 17 mg/dL (7-20); CALCIUM 9.8 mg/dL (8.4-10.2); CARBON DIOXIDE 25 mmol/L (22-30); CHLORIDE 101 mmol/L (98-107); CREATINE KINASE 51 U/L (30-135); POTASSIUM 4.2 mmol/L (3.6-5.0); SODIUM 136.1 mmol/L (137-145); TOTAL PROTEIN 7.3 g/dL (6.3-8.2)
[2017-12-22 09:37] LABS: CREATINE KINASE MB 0.36 ng/mL (<4.55)
[2017-12-22 09:41] LABS: TROPONIN I < 0.012 ng/mL
[2017-12-22 09:42] LABS: GLUCOSE 460 mg/dL (75-110)
[2017-12-22] MEDS ORDERED: NORMAL SALINE 1000 ML 1,000 ML IV ONE (09:53)
[2017-12-22] MEDS ORDERED: INSULIN REG, HUMAN 100 UNIT/ML 3 ML VIAL (PYX) SUBCUT ONE (09:59)
[2017-12-22] MEDS ORDERED: NITROGLYCERIN 2% OINTMENT 1 GM PACKET TP ONE (10:02)
[2017-12-22 11:04] LABS: APPEARANCE,URINE CLEAR; BILIRUBIN,URINE NEGATIVE (NEGATIVE); COLOR,URINE YELLOW; GLUCOSE, URINE >=500 mg/dL (NEGATIVE); KETONES,URINE TRACE mg/dL (NEGATIVE); LEUKOCYTE ESTERASE,URINE NEGATIVE (NEGATIVE); NITRITE,URINE NEGATIVE (NEGATIVE); PROTEIN,URINE NEGATIVE (NEGATIVE); URINE SPECIFIC GRAVITY 1.029; UROBILINOGEN,URINE NEGATIVE mg/dL (<2.0)
[2017-12-22] MEDS ORDERED: ACETAMINOPHEN 325 MG TABLET PO PRN (12:01)
[2017-12-22] MEDS ORDERED: ONDANSETRON HCL INJ/PF 4 MG/2 ML SDV IV PRN (12:01)
[2017-12-22] MEDS ORDERED: ONDANSETRON 4 MG TAB.RAPDIS PO PRN (12:01)
[2017-12-22] MEDS ORDERED: DEXTROSE 50%-WATER 25 GM/50 ML DISP.SYRIN IV PRN ×2 (12:04)
[2017-12-22] MEDS ORDERED: DEXTROSE 40% GEL 15 GM TUBE PO PRN ×2 (12:04)
[2017-12-22] MEDS ORDERED: GLUCAGON,HUMAN RECOMB 1 MG INJ IM PRN (12:04)
[2017-12-22] MEDS: INSULIN LISPRO 100 UNIT/ML 3 ML VIAL SUBCUT PRN ×3 (13:40→23:50)
[2017-12-22] MEDS ORDERED: PHARMACY COMMUNICATION ORDER MC NR (14:00)
--- NOTE | 2017-12-22 14:30 | PDOC H&P ---
History of Present Illness Admission Date/PCP: 12/22/17 11:20 History of Present Illness: NICK DIOP is a 62 year old female with past medical history of Insulin-dependent diabetes Hypertension Hyperlipidemia GERD History of TIA Outpatient medications include Metoprolol 25 mg twice a day Protonix 40 mg daily Aspirin 81 mg daily Meloxicam 15 mg daily Atorvastatin 40 mg daily Prazosin 1 mg 3 times a day Hydrochlorothiazide 12.5 mg daily Humalog 6 units 3 times a day before meals Lantus 50 units in the morning and 55 units in the evening Family history positive for diabetes Social history: Never smoked. Does not use alcohol or illicit drugs. Surgical history: She had a partial hysterectomy Partial right colectomy for diverticulitis The patient reportedly was walking to the store this morning when she had a sudden onset wheezing sensation in her chest which was associated with shortness of breath and lasted approximately 15 minutes. She says she felt very scared. She walks about 1 mile daily at baseline and has never experienced this kind of pain in the past. She denies any recent illness fevers sore throat or cough. Past Medical History Cardiac Medical History: Reports: Hyperlipidema, Hypertension Denies: Coronary Artery Disease, Myocardial Infarction - "light" this year Pulmonary Medical History: Reports: Asthma - WITH ILLNESS, Pneumonia - WALKING 1989 Denies: Bronchitis, Chronic Obstructive Pulmonary Disease (COPD) EENT Medical History: Reports: None Neurological Medical History: Reports: None Denies: Seizures Endocrine Medical History: Reports: Diabetes Mellitus Type 2 Renal/ Medical History: Reports: None Malignancy Medical History: Reports: None GI Medical History: Reports: None, Other - Diverticulitis Musculoskeltal Medical History: Reports: Arthritis - GENERALIZED Skin Medical History: Reports: None Psychiatric Medical History: Reports: None Traumatic Medical History: Reports: None Hematology: Denies: Anemia Past Surgical History Past Surgical History: Reports: Hysterectomy Social History Lives with: Family Smoking Status: Never Smoker Family History Family History: Reviewed & Not Pertinent, DM Parental Family History Reviewed: Yes Children Family History Reviewed: Yes Sibling(s) Family History Reviewed.: Yes Medication/Allergy Allergies/Adverse Reactions: Tetracyclines Allergy (Verified 10/26/17 17:30) Review of Systems Constitutional: PRESENT: as per HPI. ABSENT: fever(s), headache(s) Eyes: ABSENT: visual disturbances Ears: ABSENT: hearing changes Nose, Mouth, and Throat: ABSENT: sore throat Cardiovascular: PRESENT: chest pain. ABSENT: palpitations Respiratory: PRESENT: dyspnea. ABSENT: cough Gastrointestinal: ABSENT: coffee ground emesis, diarrhea, heartburn Genitourinary: ABSENT: dysuria Musculoskeletal: ABSENT: joint swelling Integumentary: ABSENT: rash Neurological: ABSENT: focal weakness Psychiatric: ABSENT: hallucinations Endocrine: ABSENT: menstrual abnormalities Hematologic/Lymphatic: ABSENT: easy bruising Physical Exam Vital Signs: Temp Pulse Resp BP Pulse Ox 98 F 96 14 124/67 96 12/22/17 08:33 12/22/17 08:33 12/22/17 11:30 12/22/17 11:30 12/22/17 08:33 Additional comments: Middle aged female lying in bed, not in acute distress HEENT: Pupils equal reactive light moist microfungi mucosa with no lesions no conjunctival discharge no icterus Lungs: Clear to auscultation bilaterally normal respiratory effort Cardiac: S1-S2 regular no murmurs heard no peripheral edema no cyanosis no calf tenderness Abdomen: Soft, no focal tenderness normal bowel sounds Skin: Warm and dry Neurologic: Awake alert oriented 3 no facial droop speech is clear and fluent Motor strength 5 out of 5 bilateral upper and lower extremities Normal mood and affect appear Results Impressions: Chest X-Ray 12/22/17 08:33 IMPRESSION: CHRONIC LUNG CHANGE WITH POSSIBLE 10 MM PULMONARY NODULE RIGHT UPPER LOBE. CT IS AVAILABLE FOR FURTHER CHARACTERIZATION. Assessment & Plan - Diagnosis (1) Chest pain Is this a current diagnosis for this admission?: Yes (2) Hypertension Is this a current diagnosis for this admission?: Yes (3) Hyperlipemia Is this a current diagnosis for this admission?: Yes (4) Insulin dependent diabetes mellitus Is this a current diagnosis for this admission?: Yes (5) History of TIA (transient ischemic attack) Is this a current diagnosis for this admission?: No (6) Pulmonary nodule Is this a current diagnosis for this admission?: Yes - Time Time Spent: 50 to 70 Minutes - Plan Summary Plan Summary: Continue outpatient medications for hypertension and hyperlipidemia Continue Lantus. Sliding scale insulin with meals N.p.o. past midnight for stress test in the morning. Check serial cardiac enzymes. Check hemoglobin A1c and lipid panel She will need to follow-up with her primary care physician for the pulmonary nodule.
[2017-12-22] MEDS ORDERED: HYDROCHLOROTHIAZIDE 12.5 MG CAPSULE PO ONE (15:00)
[2017-12-22] MEDS ORDERED: MELOXICAM 15 MG TABLET PO ONE (15:00)
[2017-12-22] MEDS ORDERED: METOPROLOL TARTRATE 25 MG TABLET PO ONE (15:00)
[2017-12-22] MEDS: MAGNESIUM SULFATE/D5W 1 GM/100 ML RTUPB IV SCH ×3 (15:46→18:41)
[2017-12-22] MEDS: LANSOPRAZOLE 15 MG TAB.RAP.DR PO SCH (17:08)
[2017-12-22] MEDS ORDERED: INSULIN GLARGINE,HUM.REC.ANLOG 1,000 UNIT/10 ML UNIT SUBCUT SCH (18:00)
[2017-12-22] MEDS: INSULIN GLARGINE,HUM.REC.ANLOG 1,000 UNIT/10 ML UNIT SUBCUT SCH (18:41)
[2017-12-22] MEDS: MAGNESIUM OXIDE 400 MG TABLET PO SCH (18:41)
--- NOTE | 2017-12-22 19:45 | EKG REPORT ---
SEVERITY:- ABNORMAL ECG - SINUS TACHYCARDIA BIATRIAL ABNORMALITIES LEFT ANTERIOR FASCICULAR BLOCK PROBABLE LEFT VENTRICULAR HYPERTROPHY : Confirmed by: Yordan Leyva 22-Dec-2017 19:44:09
[2017-12-22] MEDS ORDERED: ATORVASTATIN CALCIUM 40 MG TABLET PO SCH (22:00)
[2017-12-23 04:08] LABS: CHOLESTEROL 215.31 mg/dL (0-200); MAGNESIUM 1.8 mg/dL (1.6-2.3); PHOSPHORUS 3.9 mg/dL (2.5-4.5); TRIGLYCERIDES 185 mg/dL (<150)
[2017-12-23 04:20] LABS: DIRECT LDL 149 mg/dL (<100)
[2017-12-23] MEDS: LANSOPRAZOLE 15 MG TAB.RAP.DR PO SCH (05:36)
[2017-12-23] MEDS: INSULIN LISPRO 100 UNIT/ML 3 ML VIAL SUBCUT PRN ×2 (06:05→12:39)
[2017-12-23] MEDS ORDERED: HYDROCHLOROTHIAZIDE 12.5 MG CAPSULE PO SCH (08:00)
[2017-12-23] MEDS ORDERED: ASPIRIN 325 MG TABLET, ENT COATED PO SCH (10:00)
[2017-12-23] MEDS ORDERED: DOCUSATE SODIUM 100 MG CAPSULE PO SCH (10:00)
[2017-12-23] MEDS ORDERED: MELOXICAM 15 MG TABLET PO SCH (10:00)
[2017-12-23] MEDS: INSULIN GLARGINE,HUM.REC.ANLOG 1,000 UNIT/10 ML UNIT SUBCUT SCH (12:39)
[2017-12-23] MEDS: MAGNESIUM OXIDE 400 MG TABLET PO SCH (12:40)
[2017-12-23] MEDS ORDERED: REGADENOSON INJ 0.4 MG/5 ML DISP.SYRIN IV ONE (14:25)
[2017-12-23 15:03] VITALS: BP 145/88
--- NOTE | 2017-12-23 15:25 | PDOC DISCHARGE SUMMARY ---
General - Admit/Disc Date/PCP Admission Date/Primary Care Provider: 12/22/17 11:20 Discharge Date: 12/23/17 - Discharge Diagnosis (1) Chest pain Is this a current diagnosis for this admission?: Yes Summary: Negative troponins and stress test pain is atypical for cardiac in origin. Pain most likely is related to her gastroesophageal reflux disease. Patient was encouraged to take Zantac at bedtime. Follow-up with her primary care provider in a week (2) Hyperlipemia Is this a current diagnosis for this admission?: Yes Summary: Continue statin (3) Hypertension Is this a current diagnosis for this admission?: Yes Summary: Continue home medication (4) Insulin dependent diabetes mellitus Is this a current diagnosis for this admission?: Yes Summary: She needs improved management of her diabetes mellitus medications we increased her daily insulin dose (5) Pulmonary nodule Is this a current diagnosis for this admission?: Yes Summary: She will need follow-up in 6 months - Additional Information Resuscitation Status: Full Code Discharge Diet: Cardiac, Diabetic Discharge Activity: Activity As Tolerated Home Medications: Atorvastatin Calcium [Lipitor 40 mg Tablet] 40 mg PO QHS 12/22/17 Hydrochlorothiazide [Hydrodiuril 12.5 mg Capsule] 12.5 mg PO DAILY 12/22/17 Meloxicam [Mobic] 15 mg PO DAILY 12/22/17 Metoprolol Tartrate [Lopressor 25 mg Tablet] 25 mg PO Q12 12/22/17 Pantoprazole Sodium [Protonix] 40 mg PO DAILY 12/22/17 Prazosin HCl [Minipress] 1 mg PO Q8 12/22/17 History of Present Illness Patient complains of: Midsternal chest pain History of Present Illness: NICK DIOP is a 62 year old -[place] female with past medical history of diabetes mellitus type 2 on insulin, dyslipidemia, essential hypertension; who presents with complaints of midsternal chest pain that lasted approximately 15 minutes on her date of admission. Patient states the pain occurred about a half an hour after she ate lunch. She denies having similar symptoms. She has no history of coronary artery disease. She has poorly controlled diabetes mellitus type 2. She was admitted to telemetry with serial troponins in place. Troponins were negative. She had no acute EKG changes. Today she underwent nuclear stress testing which was negative for ischemia. Patient had no further episodes of pain. Her pain sounded similar to GERD which he does have a history of. She will start taking Zantac at bedtime. She needs follow-up with her primary care provider because of her poorly controlled diabetes mellitus type 2 Hospital Course Hospital Course: Patient was admitted to telemetry. Serial troponins were negative. Nuclear stress test was negative. She will be discharged home with follow up with her primary care provider. She needs improved control of her blood sugars and follow up on indeterminate lung nodule Physical Exam Vital Signs: Temp Pulse Resp BP Pulse Ox 97.9 F 74 20 145/88 H 98 12/23/17 05:01 12/22/17 12:02 12/23/17 14:02 12/23/17 14:02 12/23/17 14:02 Intake & Output 12/22/17 12/23/17 12/24/17 06:59 06:59 06:59 Output Total 260 250 Balance -260 -250 General appearance: PRESENT: no acute distress, well-developed, well-nourished Head exam: PRESENT: atraumatic, normocephalic Eye exam: PRESENT: conjunctiva pink, EOMI, PERRLA. ABSENT: scleral icterus Ear exam: PRESENT: normal external ear exam Mouth exam: PRESENT: moist, tongue midline Neck exam: ABSENT: carotid bruit, JVD, lymphadenopathy, thyromegaly Respiratory exam: PRESENT: clear to auscultation [place]. ABSENT: rales, rhonchi, wheezes Cardiovascular exam: PRESENT: RRR. ABSENT: diastolic murmur, rubs, systolic murmur Pulses: PRESENT: normal dorsalis pedis pul Vascular exam: PRESENT: normal capillary refill GI/Abdominal exam: PRESENT: normal bowel sounds, soft. ABSENT: distended, guarding, mass, organolmegaly, rebound, tenderness Rectal exam: PRESENT: deferred Extremities exam: PRESENT: full ROM. ABSENT: calf tenderness, clubbing, pedal edema Neurological exam: PRESENT: alert, awake, oriented to person, oriented to place , oriented to time, oriented to situation, CN II-XII grossly intact. ABSENT: motor sensory deficit Psychiatric exam: PRESENT: appropriate affect, normal mood. ABSENT: homicidal ideation, suicidal ideation Skin exam: PRESENT: dry, intact, warm. ABSENT: cyanosis, rash Results Laboratory Results: 12/23/17 12/23/17 03:15 03:15 Phosphorus 3.9 Magnesium 1.8 Triglycerides 185 H Cholesterol 215.31 H LDL Cholesterol Direct 149 H VLDL Cholesterol 37.0 H HDL Cholesterol 40 TSH 1.01 12/22/17 12/22/17 12/22/17 12:35 15:40 15:40 Creatine Kinase 51 Troponin I < 0.012 < 0.012 12/22/17 12/22/17 12/23/17 21:00 21:00 03:15 Creatine Kinase 55 58 Troponin I < 0.012 12/23/17 03:15 Creatine Kinase Troponin I < 0.012 Impressions: Chest X-Ray 12/22/17 08:33 IMPRESSION: CHRONIC LUNG CHANGE WITH POSSIBLE 10 MM PULMONARY NODULE RIGHT UPPER LOBE. CT IS AVAILABLE FOR FURTHER CHARACTERIZATION. Qualifiers PATEINT BEING DISCHARGED WITH ANY OF THE FOLLOWING DIAGNOSIS?: No
--- NOTE | 2017-12-23 21:19 | DRAGON STRESS TEST REPORT ---
Intravenous Lexiscan Cardiolite stress test using single photon emmision computerized tomography. Date of procedure: 12/23/2017. Ordering Provider: . Patient's status: In Patient Indication: Chest pain. Coronary risk factors: Age, diabetes, hypertension, and dyslipidemia. Resting EKG: Sinus Rhythm. T inversion in leads V5 and V6. Stress EKG: No changes of ischemia. Reason for termination: Protocol. Conclusions: Normal EKG and hemodynamic response to IV Lexiscan. Nuclear data: At rest the patient was given 11.42 millicuries of technetium 99m sestamibi injected intravenously. As per protocol rest non gated SPECT images were obtained. Subsequently the patient was given intravenous Lexiscan at a dose of 0.4 mg in 5 mL intravenously, followed by flush with normal saline. Subsequently the stress dose of 35.4 millicuries of technetium 99m sestamibi was injected intravenously. As per protocol stress gated images were obtained. Nuclear interpretation: Review of images showed that all segments of the myocardium had normal perfusion at rest, and normal perfusion post stress with IV Lexiscan. All segments of the myocardium had normal motion, contraction, and thickening by gated study. T. I D. ratio was normal at 0.98. Computer read rest, and stress left ventricular ejection fraction were 67 %, and 71 %, respectively. Conclusion: 1. There is no scintigraphic evidence of Lexiscan induced myocardial ischemia. 2. There is no scintigraphic evidence of myocardial infarction/scar. Recommendations: Aggressive risk factor modification, and treating the underlying co- morbidities. MTDD
== END 2017-12-23 16:10 | disposition home or self-care (01) ==
LOC: ER 08:23 → EH 11:20
PROVIDERS: ADMIT Internal Medicine; ATTEND Internal Medicine
DX: R07.9 Chest pain, unspecified (principal); E78.5 Hyperlipidemia, unspecified; I10 Essential (primary) hypertension; E11.65 Type 2 diabetes mellitus with hyperglycemia; R91.1 Solitary pulmonary nodule; R06.2 Wheezing; R06.02 Shortness of breath; R00.0 Tachycardia, unspecified; I44.4 Left anterior fascicular block; Z79.4 Long term (current) use of insulin; Z79.899 Other long term (current) drug therapy; Z79.1 Long term (current) use of non-steroidal anti-inflammatories (NSAID); Z86.73 Personal history of transient ischemic attack (TIA), and cerebral infarction without residual deficits; Z79.82 Long term (current) use of aspirin; Z83.3 Family history of diabetes mellitus; Z90.710 Acquired absence of both cervix and uterus; Z90.49 Acquired absence of other specified parts of digestive tract; Z87.01 Personal history of pneumonia (recurrent)
CPT/HCPCS: 93005; 99285; 96361; 96365; 96366; 36415 ×2; 82553; 82962 ×2; 82550 ×2; 83735 ×2; 84100; 84443; 85025; 80053; 81001; 84484 ×2; 83036; 80061; 93017; 71045; 78452; 93010; A9500; J2785; J3490 ×9; J1815 ×5; J3475; J7030; Q9969